=== PATIENT | female | born 1995 | race American Indian/Alaskan Native ===

== ENCOUNTER 2017-01-18 01:27 | Emergency (ER) | payer MEDICAID ==
[2017-01-18 01:46] VITALS: BP 125/97; PULSE 89; RESP 16; TEMP 98; O2SAT 98
--- NOTE | 2017-01-18 02:19 | ED PDOC ---
HPI: Female Pain Time Seen by Provider: 01/18/17 01:47 Chief Complaint (Nursing): Female Genitourinary Chief Complaint (Provider): Vaginal Odor History Per: Patient History/Exam Limitations: no limitations Onset/Duration Of Symptoms: Days (x 1.5 weeks) Current Symptoms Are (Timing): Still Present Additional Complaint(s): Erick is a 21 y/o female with a history of bacterial vaginosis who presents to the ED c/o 1.5 weeks fishy odor from vagina with discharge. Patient denies vaginal bleeding, pain, or fever. She states she is having intercourse with one partner with whom she uses protection. She is not concerned about STDs but consents for STD testing. PMD: None Provided Abnormal Vaginal Bleeding: No Past Medical History Reviewed: Historical Data, Nursing Documentation, Vital Signs Vital Signs: Last Vital Signs Temp 98 F 01/18/17 01:44 Pulse 89 01/18/17 01:44 Resp 16 01/18/17 01:44 BP 125/97 H 01/18/17 01:44 Pulse Ox 98 01/18/17 01:44 - Medical History PMH: Asthma Other PMH: Bacterial vaginosis - Family History Family History: States: Unknown Family Hx - Home Medications Home Medications: Ambulatory Orders Medication Instructions Recorded metroNIDAZOLE [Flagyl] 500 mg PO BID 7 Days tab 01/18/17 - Allergies Allergies/Adverse Reactions: Allergies Allergy/AdvReac Type Severity Reaction Status Date / Time No Known Allergies Allergy Verified 01/18/17 01:46 Review of Systems ROS Statement: Except As Marked, All Systems Reviewed And Found Negative Constitutional: Negative for: Fever Genitourinary Female: Positive for: Vaginal Discharge, Other (foul fishy odor). Negative for: Vaginal Bleeding, Pelvic Pain Physical Exam - Reviewed Nursing Documentation Reviewed: Yes Vital Signs Reviewed: Yes - Physical Exam Appears: Positive for: Non-toxic, No Acute Distress Head Exam: Positive for: ATRAUMATIC, NORMAL INSPECTION, NORMOCEPHALIC Skin: Positive for: Normal Color, Warm, Dry Eye Exam: Positive for: Normal appearance, EOMI, PERRL. Negative for: Nystagmus ENT: Positive for: Normal ENT Inspection Neck: Positive for: Normal, Painless ROM, Supple Cardiovascular/Chest: Positive for: Regular Rate, Rhythm. Negative for: Murmur Respiratory: Positive for: Normal Breath Sounds. Negative for: Respiratory Distress Gastrointestinal/Abdominal: Positive for: Normal Exam, Bowel Sounds, Soft. Negative for: Tenderness Pelvic Exam: Positive for: Discharge (white mucoid with foul smelling odor) Back: Positive for: Normal Inspection Extremity: Positive for: Normal ROM. Negative for: Pedal Edema, Deformity Neurologic/Psych: Positive for: Alert, Oriented. Negative for: Motor/Sensory Deficits - ECG O2 Sat by Pulse Oximetry: 98 (RA) Pulse Ox Interpretation: Normal Medical Decision Making Medical Decision Making: PMD: None Provided Time: 2:01 Initial Impression: Bacterial Vaginosis Initial Plan: --Urine --Urine Dipstick --Chlamydia/GC --Pelvic exam was performed with Harriet Lao RN, as tuck pointer. Exam shows white mucoid discharge with foul smelling odor. --Patient is stable for discharge and [facility] if symptoms do not resolve with given Rx Scribe Attestation: Documented by Shaquille Martino, acting as a scribe for Jose Dey MD Provider Scribe Attestation: All medical record entries made by the Scribe were at my direction and personally dictated by me. I have reviewed the chart and agree that the record accurately reflects my personal performance of the history, physical exam, medical decision making, and the department course for this patient. I have also personally directed, reviewed, and agree with the discharge instructions and disposition. Disposition - Clinical Impression Clinical Impression: Bacterial vaginosis - Patient ED Disposition Is Patient to be Admitted: No Counseled Patient/Family Regarding: Studies Performed, Diagnosis, Need For Followup, Rx Given - Disposition Referrals: [facility] [Outside] Disposition Time: 02:15 Condition: STABLE Prescriptions: metroNIDAZOLE [Flagyl] 500 mg PO BID 7 Days tab Instructions: Bacterial Vaginosis (ED) Forms: [employer] ([employer] [place]) - POA Present On Arrival: None
[2017-01-18 02:40] LABS: RBC URINE 2 /hpf (0-3); URINE BACTERIA RARE (<OCC); URINE BILIRUBIN NEGATIVE (NEGATIVE); URINE BLOOD NEGATIVE (NEGATIVE); URINE COLOR YELLOW (YELLOW); URINE GLUCOSE (UA) NEG (Normal); URINE KETONE NEGATIVE (NEGATIVE); URINE LEUKOCYTE ESTERASE TRACE Leu/uL (Negative); URINE PROTEIN 30 mg/dL (NEGATIVE); URINE UROBILINOGEN 0.2-1.0 mg/dL (0.2-1.0); WBC URINE 4 /hpf (0-5)
== END 2017-01-18 02:30 | disposition home or self-care (01) ==
LOC: H.ER 01:27
DX: N76.0 Acute vaginitis (principal); B96.89 Other specified bacterial agents as the cause of diseases classified elsewhere; J45.909 Unspecified asthma, uncomplicated